=== PATIENT | female | born 1970 | race Asian ===

== ENCOUNTER 2017-03-15 11:25 | Emergency (ER) | payer MEDICAID ==
[~2017-03-15] VITALS: Ht 160 cm; Wt 99.1 kg
[~2017-03-15 11:25] MED LIST: AMLO5TAB2 PO; ATOR10TA9 PO; B12/1TAB PO; CHOL10003 PO; CHOL200040 PO; FERR15DR18 PO; FERR325T20 PO; FOLI-17 PO; FURO20TA3 PO; FURO80TA3 PO; GLYB5TAB3 PO; INSU100I28 SQ-INSULIN; INSU100V8 SQ; LOSA25TA5 PO; NAPR500T PO; ONDA-39 PO; SEVE800T PO; TRAM100T2 PO; TRAN650T3 PO
[2017-03-15] MEDS ORDERED: MECLIZINE CHEWABLE 25 MG TAB PO ONE (13:00)
[2017-03-15] MEDS ORDERED: ONDANSETRON 2MG/ML, 2ML IVPush ONE (13:00)
[2017-03-15] MEDS ORDERED: SODIUM CHLORIDE FLUSH 10ML SYR IVF ONE (13:00)
[2017-03-15] MEDS ORDERED: INSU100I34 SQ (13:06)
[2017-03-15 13:26] LABS: HEMOGLOBIN 8.3 g/dL (11.7-16.4)
[2017-03-15] MEDS ORDERED: MECLIZINE CHEWABLE 25 MG TAB ONE (13:27)
[2017-03-15] MEDS ORDERED: ONDANSETRON 2MG/ML, 2ML ONE (13:27)
[2017-03-15 13:35] LABS: ASPARTATE AMINO TRANSFERASE 9 U/L (15-37); BLOOD UREA NITROGEN 16 mg/dL (7-18)
[2017-03-15] MEDS ORDERED: DIAZEPAM 5 MG/ML, 2ML ONE (14:42)
[2017-03-15] MEDS ORDERED: DIAZEPAM 5 MG/ML, 2ML IV ONE (15:00)
[2017-03-15 15:40] VITALS: BP 150/91
== END 2017-03-15 15:41 | disposition home or self-care (01) ==
LOC: ED 15:03
DX: H81.13 Benign paroxysmal vertigo, bilateral (principal); H81.393 Other peripheral vertigo, bilateral; I12.0 Hypertensive chronic kidney disease with stage 5 chronic kidney disease or end stage renal disease; N18.6 End stage renal disease; E11.9 Type 2 diabetes mellitus without complications; Z88.8 Allergy status to other drugs, medicaments and biological substances
CPT/HCPCS: 36415; 70450; 80053; 83735; 84100; 84703; 85025; 93005; 96374; 96375; 99285; J2405; J3360

== ENCOUNTER 2017-03-25 18:14 | Inpatient (IN) | payer MEDICAID ==
[~2017-03-25] VITALS: Ht 160 cm; Wt 96.2 kg
[~2017-03-25 18:14] MED LIST changes: +INSU100I34 SQ
[2017-03-25] MEDS ORDERED: SODIUM CHLORIDE FLUSH 10ML SYR IVF ONE ×2 (19:00→19:30)
[2017-03-25] MEDS ORDERED: SODIUM CHLORIDE 0.9% 1,000ML IVBOLUS ONE (19:00)
[2017-03-25 19:26] LABS: ASPARTATE AMINO TRANSFERASE 17 U/L (15-37); BLOOD UREA NITROGEN 29 mg/dL (7-18)
[2017-03-25] MEDS ORDERED: SODIUM CHLORIDE FLUSH 10ML SYR IVF PRN (20:30)
[2017-03-25 20:41] VITALS: BP 191/92
[2017-03-25 20:56] VITALS: BP 191/91
[2017-03-25] MEDS ORDERED: INSU100I34 SQ (20:59)
[2017-03-25 21:13] VITALS: BP 198/93
[2017-03-25] MEDS ORDERED: ACETAMINOPHEN 325 MG TABLET PO PRN (22:00)
[2017-03-25] MEDS: [UNRECOGNIZED DRUG - REMARK] MC SCH ×2 (22:00→23:00)
[2017-03-25] MEDS ORDERED: BISACODYL 10 MG SUPP PR PRN (22:00)
[2017-03-25] MEDS ORDERED: ONDANSETRON 4 MG TABLET PO PRN (22:00)
[2017-03-25] MEDS ORDERED: POLYETHYLENE GLYCOL 17 GM PACKET PO PRN (22:00)
[2017-03-25] MEDS ORDERED: hydrALAzine 20 MG/ML, 1ML IV PRN (22:00)
[2017-03-25] MEDS: LISINOPRIL 10 MG TABLET PO SCH ×2 (22:30→22:41)
[2017-03-25] MEDS ORDERED: DIPHENHYDRAMINE 50 MG/ML, 1ML IVPush ONE (22:30)
[2017-03-25] MEDS: TRAZODONE 50MG TABLET PO SCH (22:30)
[2017-03-25 22:31] VITALS: BP 136/79
[2017-03-25] MEDS ORDERED: LORazepam 1MG TABLET ONE (22:36)
[2017-03-25] MEDS: LORazepam 0.5MG TABLET PO PRN (22:38)
[2017-03-25] MEDS: FERROUS SULFATE 325 MG TABLET PO SCH (22:40)
[2017-03-25] MEDS: SODIUM CHLORIDE FLUSH 10ML SYR IVF SCH (22:40)
[2017-03-25] MEDS: ATORVASTATIN 10 MG TABLET PO SCH (22:41)
[2017-03-25] MEDS: SEVELAMER 800MG TABLET PO SCH (22:41)
[2017-03-25 23:17] VITALS: BP 174/83
[2017-03-26] VITALS (10 sets, daily range): BP systolic 106–172; BP diastolic 66–95
[2017-03-26] MEDS: SEVELAMER 800MG TABLET PO SCH ×5 (03:53→15:51)
[2017-03-26] MEDS: CARVEDILOL 12.5 MG TABLET PO SCH ×2 (05:41→18:20)
[2017-03-26 06:07] LABS: ASPARTATE AMINO TRANSFERASE 15 U/L (15-37); BLOOD UREA NITROGEN 30 mg/dL (7-18)
[2017-03-26] MEDS: SENNA/DOCUSATE TABLET PO SCH (09:00)
[2017-03-26] MEDS ORDERED: INSULIN DETEMIR 100 UNITS/ML, PEN SQ-INSULIN SCH (09:00)
[2017-03-26] MEDS: CHOLECALCIFEROL 1,000 UNIT TABLET PO SCH (09:26)
[2017-03-26] MEDS: FERROUS SULFATE 325 MG TABLET PO SCH ×3 (09:27→22:35)
[2017-03-26] MEDS: MULTIVITAMIN 1 TABLET PO SCH (09:27)
[2017-03-26] MEDS: SODIUM CHLORIDE FLUSH 10ML SYR IVF SCH ×2 (09:28→22:35)
[2017-03-26] MEDS: TRAZODONE 50MG TABLET PO SCH (21:00)
[2017-03-26] MEDS: ATORVASTATIN 10 MG TABLET PO SCH (22:35)
[2017-03-27 02:00] VITALS: BP 101/67
[2017-03-27 05:59] VITALS: BP 129/81
[2017-03-27] MEDS: CARVEDILOL 12.5 MG TABLET PO SCH ×2 (06:01→17:25)
[2017-03-27] MEDS: INSULIN DETEMIR 100 UNITS/ML, PEN SQ-INSULIN SCH (06:01)
[2017-03-27 06:15] LABS: BLOOD UREA NITROGEN 23 mg/dL (7-18)
[2017-03-27 06:42] VITALS: BP 113/70
[2017-03-27] MEDS ORDERED: ONDANSETRON 2MG/ML, 2ML ONE (08:39)
[2017-03-27] MEDS: ONDANSETRON 2MG/ML, 2ML IVPush PRN ×2 (08:44→14:04)
[2017-03-27 08:54] VITALS: BP_SYST 111; BP_SYST 114; BP_SYST 134; BP_DIAS 74; BP_DIAS 75; BP_DIAS 83
[2017-03-27] MEDS: SENNA/DOCUSATE TABLET PO SCH ×2 (09:00→17:26)
[2017-03-27] MEDS: MECLIZINE 12.5 MG TABLET PO PRN (10:42)
[2017-03-27] MEDS: PROGESTERONE 100 MG CAPSULE PO SCH (10:43)
[2017-03-27] MEDS: FERROUS SULFATE 325 MG TABLET PO SCH ×3 (10:44→22:24)
[2017-03-27] MEDS: CHOLECALCIFEROL 1,000 UNIT TABLET PO SCH (10:44)
[2017-03-27] MEDS: SEVELAMER 800MG TABLET PO SCH ×3 (10:44→17:25)
[2017-03-27] MEDS: SODIUM CHLORIDE FLUSH 10ML SYR IVF SCH ×2 (10:45→22:24)
[2017-03-27] MEDS: MULTIVITAMIN 1 TABLET PO SCH (10:45)
[2017-03-27 12:42] VITALS: BP 120/70
[2017-03-27] MEDS ORDERED: DARBEPOETIN 100 MCG/ML SQ SCH (13:30)
[2017-03-27 19:45] VITALS: BP 127/78
[2017-03-27] MEDS: TRAZODONE 50MG TABLET PO SCH (22:24)
[2017-03-27] MEDS: ATORVASTATIN 10 MG TABLET PO SCH (22:24)
[2017-03-28] MEDS: MECLIZINE 12.5 MG TABLET PO PRN ×2 (01:18→11:46)
[2017-03-28 02:22] VITALS: BP 106/66
[2017-03-28 06:15] LABS: ASPARTATE AMINO TRANSFERASE 9 U/L (15-37); BLOOD UREA NITROGEN 39 mg/dL (7-18)
[2017-03-28] MEDS: INSULIN DETEMIR 100 UNITS/ML, PEN SQ-INSULIN SCH (06:19)
[2017-03-28] MEDS: CARVEDILOL 12.5 MG TABLET PO SCH ×2 (06:19→17:47)
[2017-03-28 07:10] VITALS: BP 101/64
[2017-03-28 07:42] VITALS: BP_SYST 104; BP_SYST 109; BP_DIAS 67; BP_DIAS 71
[2017-03-28] MEDS: SEVELAMER 800MG TABLET PO SCH ×3 (09:29→17:46)
[2017-03-28] MEDS: MULTIVITAMIN 1 TABLET PO SCH (09:29)
[2017-03-28] MEDS: FERROUS SULFATE 325 MG TABLET PO SCH ×3 (09:29→20:56)
[2017-03-28] MEDS: SODIUM CHLORIDE FLUSH 10ML SYR IVF SCH ×2 (09:29→20:56)
[2017-03-28] MEDS: PROGESTERONE 100 MG CAPSULE PO SCH (09:30)
[2017-03-28] MEDS: SENNA/DOCUSATE TABLET PO SCH (09:30)
[2017-03-28] MEDS: CHOLECALCIFEROL 1,000 UNIT TABLET PO SCH (09:30)
[2017-03-28 12:34] VITALS: BP_SYST 127; BP_SYST 131; BP_SYST 152; BP_DIAS 82; BP_DIAS 86; BP_DIAS 87
[2017-03-28 16:36] LABS: ASPARTATE AMINO TRANSFERASE 13 U/L (15-37); BLOOD UREA NITROGEN 44 mg/dL (7-18)
[2017-03-28 20:29] VITALS: BP_SYST 135; BP_SYST 149; BP_SYST 162; BP_DIAS 79; BP_DIAS 81; BP_DIAS 84
[2017-03-28] MEDS: TRAZODONE 50MG TABLET PO SCH (20:56)
[2017-03-28] MEDS: ATORVASTATIN 10 MG TABLET PO SCH (20:56)
[2017-03-29 00:55] VITALS: BP 105/68
[2017-03-29 05:29] LABS: ASPARTATE AMINO TRANSFERASE 7 U/L (15-37); BLOOD UREA NITROGEN 53 mg/dL (7-18)
[2017-03-29] MEDS: INSULIN DETEMIR 100 UNITS/ML, PEN SQ-INSULIN SCH (05:59)
[2017-03-29] MEDS: CARVEDILOL 12.5 MG TABLET PO SCH ×2 (06:00→17:13)
[2017-03-29] MEDS: SEVELAMER 800MG TABLET PO SCH ×3 (07:00→17:14)
[2017-03-29 07:12] VITALS: BP_SYST 124; BP_SYST 130; BP_DIAS 69; BP_DIAS 76; BP_DIAS 77
[2017-03-29] MEDS: SODIUM CHLORIDE FLUSH 10ML SYR IVF SCH ×2 (08:37→20:12)
[2017-03-29 13:15] VITALS: BP 110/70
[2017-03-29] MEDS: FERROUS SULFATE 325 MG TABLET PO SCH ×3 (13:23→20:12)
[2017-03-29] MEDS: PROGESTERONE 100 MG CAPSULE PO SCH (13:24)
[2017-03-29] MEDS: SENNA/DOCUSATE TABLET PO SCH (13:24)
[2017-03-29] MEDS: CHOLECALCIFEROL 1,000 UNIT TABLET PO SCH (13:24)
[2017-03-29] MEDS: MULTIVITAMIN 1 TABLET PO SCH (13:24)
[2017-03-29 19:30] VITALS: BP_SYST 107; BP_SYST 116; BP_SYST 121; BP_DIAS 67; BP_DIAS 72; BP_DIAS 75
[2017-03-29] MEDS: TRAZODONE 50MG TABLET PO SCH (20:12)
[2017-03-29] MEDS: ATORVASTATIN 10 MG TABLET PO SCH (20:12)
[2017-03-29] MEDS: MECLIZINE 12.5 MG TABLET PO PRN (20:20)
[2017-03-30 01:42] VITALS: BP 116/70
[2017-03-30] MEDS: LORazepam 0.5MG TABLET PO PRN (02:53)
[2017-03-30 05:40] LABS: BLOOD UREA NITROGEN 31 mg/dL (7-18)
[2017-03-30 05:44] LABS: ASPARTATE AMINO TRANSFERASE 13 U/L (15-37)
[2017-03-30] MEDS: CARVEDILOL 12.5 MG TABLET PO SCH (06:32)
[2017-03-30] MEDS: INSULIN DETEMIR 100 UNITS/ML, PEN SQ-INSULIN SCH (06:33)
[2017-03-30 07:00] VITALS: BP 115/74
[2017-03-30] MEDS: SEVELAMER 800MG TABLET PO SCH (08:00)
[2017-03-30] MEDS: PROGESTERONE 100 MG CAPSULE PO SCH (08:00)
[2017-03-30] MEDS: FERROUS SULFATE 325 MG TABLET PO SCH (08:00)
[2017-03-30] MEDS: MULTIVITAMIN 1 TABLET PO SCH (08:00)
[2017-03-30] MEDS: SODIUM CHLORIDE FLUSH 10ML SYR IVF SCH (08:01)
[2017-03-30] MEDS: CHOLECALCIFEROL 1,000 UNIT TABLET PO SCH (08:01)
[2017-03-30] MEDS: MECLIZINE 12.5 MG TABLET PO PRN (08:01)
[2017-03-30] MEDS: SENNA/DOCUSATE TABLET PO SCH (08:02)
[2017-03-30] MEDS ORDERED: MECL12.52 PO (08:16)
[2017-03-30] MEDS ORDERED: PROG100C2 PO (08:16)
[2017-03-30] MEDS ORDERED: ERGO500017 PO (08:23)
== END 2017-03-30 12:06 | disposition home or self-care (01) | DRG 760 ==
LOC: ED 20:22 → EDIP 21:05 → 4EST 21:47 → DCLOUNGE 03-30 11:32
PROVIDERS: ADMIT Internal Medicine; ATTEND Internal Medicine
PROC: 30233N1 Transfusion of Nonautologous Red Blood Cells into Peripheral Vein, Percutaneous Approach (ICD-10-PCS; principal; 2017-03-25)
PROC: 5A1D60Z (ICD-10-PCS; 2017-03-26)
DX: N93.8 Other specified abnormal uterine and vaginal bleeding (principal); N18.6 End stage renal disease; I13.2 Hypertensive heart and chronic kidney disease with heart failure and with stage 5 chronic kidney disease, or end stage renal disease; E87.1 Hypo-osmolality and hyponatremia; D62 Acute posthemorrhagic anemia; I50.32 Chronic diastolic (congestive) heart failure; E46 Unspecified protein-calorie malnutrition; E11.22 Type 2 diabetes mellitus with diabetic chronic kidney disease; G43.909 Migraine, unspecified, not intractable, without status migrainosus; E11.65 Type 2 diabetes mellitus with hyperglycemia; E78.5 Hyperlipidemia, unspecified; G47.33 Obstructive sleep apnea (adult) (pediatric); N83.209 Unspecified ovarian cyst, unspecified side; D63.8 Anemia in other chronic diseases classified elsewhere; H81.10 Benign paroxysmal vertigo, unspecified ear; H81.09 Meniere's disease, unspecified ear; N92.0 Excessive and frequent menstruation with regular cycle; E55.9 Vitamin D deficiency, unspecified; Z79.4 Long term (current) use of insulin; Z99.2 Dependence on renal dialysis; Z72.0 Tobacco use; Z88.8 Allergy status to other drugs, medicaments and biological substances
CPT/HCPCS: 36415; 70551; 71010; 74020; 76700; 76830; 80048; 80053; 82040; 82306; 82728; 82962; 83036; 83540; 83550; 83970; 84100; 84703; 85025; 85610; 85730; 86850; 86900; 86923; 93005; 96360; 96361; J0881; J2405; Q0162; J0360; J1200; J1815; J7030; P9016

== ENCOUNTER 2017-04-05 11:23 | Inpatient (IN) | payer MEDICAID ==
[2017-04-05] VITALS (8 sets, daily range): BP systolic 120–146; BP diastolic 61–82
[~2017-04-05] VITALS: Ht 160 cm; Wt 104.4 kg
[~2017-04-05 11:23] MED LIST changes: +ERGO500017 PO; +MECL12.52 PO; +PROG100C2 PO
[2017-04-05] MEDS ORDERED: SODIUM CHLORIDE 0.9% 1,000 ML IV ONE (12:11)
[2017-04-05 12:45] LABS: BLOOD UREA NITROGEN 17 mg/dL (7-18)
[2017-04-05 13:13] LABS: DIFF TOTAL CELLS COUNTED 100 CELL DIFF
[2017-04-05 13:14] LABS: VERIFY COUNTS? YES
[2017-04-05 13:15] LABS: ANISOCYTOSIS 2+; MICROCYTOSIS 1+
[2017-04-05 13:16] LABS: POLYCHROMASIA 1+
[2017-04-05] MEDS ORDERED: MORPHINE SULFATE 4 MG/ML, 1ML IVPush PRN (15:30)
[2017-04-05] MEDS: MEDROXYPROGESTERONE ACETATE 5 MG TABLET PO SCH ×2 (16:00→21:29)
[2017-04-05] MEDS ORDERED: MECLIZINE 12.5 MG TABLET PO PRN (17:30)
[2017-04-05] MEDS ORDERED: morphine SULFATE 10 MG/ML, 1ML IVPush PRN (17:30)
[2017-04-05] MEDS ORDERED: LABETALOL 5MG/ML 40ML VIAL IVPush PRN (17:30)
[2017-04-05] MEDS ORDERED: ONDANSETRON 2MG/ML, 2ML IVPush PRN (17:30)
[2017-04-05] MEDS ORDERED: DOCUSATE 100 MG CAPSULE PO PRN (17:30)
[2017-04-05] MEDS ORDERED: ACETAMINOPHEN 325 MG TABLET PO PRN (17:30)
[2017-04-05] MEDS ORDERED: ONDANSETRON ODT 4 MG PO PRN (17:30)
[2017-04-05] MEDS ORDERED: BISACODYL 10 MG SUPP PR PRN (17:30)
[2017-04-05] MEDS ORDERED: POTASSIUM CHLORIDE 20 MEQ TAB.ER.PRT PO ONE (18:00)
[2017-04-05] MEDS ORDERED: DEXTROSE 4 GM TAB.CHEW PO PRN (18:00)
[2017-04-05] MEDS ORDERED: GLUCAGON 1 MG IM PRN (18:00)
[2017-04-05] MEDS ORDERED: DEXTROSE 50%, 50ML SYRINGE IVPush PRN (18:00)
[2017-04-05] MEDS: FERROUS SULFATE 325 MG TABLET PO SCH (21:28)
[2017-04-05] MEDS: ATORVASTATIN 10 MG TABLET PO SCH (21:28)
[2017-04-05] MEDS: INSULIN REGULAR 100 UNITS/ML, 3ML VIAL SQ-INSULIN SCH (21:28)
[2017-04-05] MEDS: SODIUM CHLORIDE FLUSH 10ML SYR IVF SCH (21:29)
[2017-04-06] VITALS (13 sets, daily range): BP systolic 129–165; BP diastolic 69–85
[2017-04-06 04:58] LABS: BLOOD UREA NITROGEN 27 mg/dL (7-18)
[2017-04-06 05:02] LABS: ASPARTATE AMINO TRANSFERASE 8 U/L (15-37)
[2017-04-06] MEDS: INSULIN REGULAR 100 UNITS/ML, 3ML VIAL SQ-INSULIN SCH ×4 (07:00→20:32)
[2017-04-06] MEDS: SEVELAMER 800MG TABLET PO SCH ×3 (08:04→17:08)
[2017-04-06] MEDS: FERROUS SULFATE 325 MG TABLET PO SCH ×3 (08:04→20:33)
[2017-04-06] MEDS: CHOLECALCIFEROL 1,000 UNIT TABLET PO SCH (08:04)
[2017-04-06] MEDS: MEDROXYPROGESTERONE ACETATE 5 MG TABLET PO SCH ×3 (08:04→20:32)
[2017-04-06] MEDS: SODIUM CHLORIDE FLUSH 10ML SYR IVF SCH ×2 (08:05→20:33)
[2017-04-06] MEDS ORDERED: PHARMACY MAY ADJ FOR RENAL FX MC PRN (12:30)
[2017-04-06] MEDS: CEFTRIAXONE PMX 1GM/50ML 50 ML IV SCH (12:58)
[2017-04-06] MEDS: ATORVASTATIN 10 MG TABLET PO SCH (20:33)
[2017-04-07 04:54] VITALS: BP 170/77
[2017-04-07 06:24] LABS: BLOOD UREA NITROGEN 40 mg/dL (7-18)
[2017-04-07] MEDS: INSULIN REGULAR 100 UNITS/ML, 3ML VIAL SQ-INSULIN SCH ×4 (07:00→20:51)
[2017-04-07 07:21] VITALS: BP 155/88
[2017-04-07] MEDS: FERROUS SULFATE 325 MG TABLET PO SCH ×3 (07:58→20:50)
[2017-04-07] MEDS: MEDROXYPROGESTERONE ACETATE 5 MG TABLET PO SCH ×3 (07:58→20:50)
[2017-04-07] MEDS: SEVELAMER 800MG TABLET PO SCH ×3 (07:59→16:37)
[2017-04-07] MEDS: CHOLECALCIFEROL 1,000 UNIT TABLET PO SCH (07:59)
[2017-04-07] MEDS: SODIUM CHLORIDE FLUSH 10ML SYR IVF SCH ×2 (08:03→20:50)
[2017-04-07] MEDS ORDERED: ARANESP 100 MCG/ML **ESRD SQ SCH (12:00)
[2017-04-07 14:29] VITALS: BP 133/81
[2017-04-07] MEDS: CEFTRIAXONE PMX 1GM/50ML 50 ML IV SCH (14:40)
[2017-04-07 20:00] VITALS: BP 165/75
[2017-04-07] MEDS: ATORVASTATIN 10 MG TABLET PO SCH (20:50)
[2017-04-08 02:00] VITALS: BP 135/75
[2017-04-08 05:47] LABS: BLOOD UREA NITROGEN 31 mg/dL (7-18)
[2017-04-08] MEDS: INSULIN REGULAR 100 UNITS/ML, 3ML VIAL SQ-INSULIN SCH (07:00)
[2017-04-08] MEDS: CHOLECALCIFEROL 1,000 UNIT TABLET PO SCH (07:37)
[2017-04-08] MEDS: FERROUS SULFATE 325 MG TABLET PO SCH (07:37)
[2017-04-08] MEDS: MEDROXYPROGESTERONE ACETATE 5 MG TABLET PO SCH (07:37)
[2017-04-08] MEDS: SEVELAMER 800MG TABLET PO SCH (07:38)
[2017-04-08] MEDS: SODIUM CHLORIDE FLUSH 10ML SYR IVF SCH (07:41)
[2017-04-08 07:59] VITALS: BP 153/87
[2017-04-08] MEDS ORDERED: MEDR5TAB2 PO (08:48)
[2017-04-08] MEDS ORDERED: CEFU250T66 PO (08:48)
== END 2017-04-08 11:45 | disposition home or self-care (01) | DRG 760 ==
LOC: ED 13:54 → EDIP 14:37 → 4EST 15:47 → DCLOUNGE 04-08 11:25
PROVIDERS: ADMIT Hospitalist; ATTEND Hospitalist
PROC: 30233N1 Transfusion of Nonautologous Red Blood Cells into Peripheral Vein, Percutaneous Approach (ICD-10-PCS; principal; 2017-04-05)
PROC: 0T9B70Z Drainage of Bladder with Drainage Device, Via Natural or Artificial Opening (ICD-10-PCS; 2017-04-06)
PROC: 5A1D60Z (ICD-10-PCS; 2017-04-07)
DX: N92.1 Excessive and frequent menstruation with irregular cycle (principal); N18.6 End stage renal disease; I13.2 Hypertensive heart and chronic kidney disease with heart failure and with stage 5 chronic kidney disease, or end stage renal disease; I50.32 Chronic diastolic (congestive) heart failure; D62 Acute posthemorrhagic anemia; N39.0 Urinary tract infection, site not specified; E44.0 Moderate protein-calorie malnutrition; Z68.41 Body mass index [BMI] 40.0-44.9, adult; G43.909 Migraine, unspecified, not intractable, without status migrainosus; E11.22 Type 2 diabetes mellitus with diabetic chronic kidney disease; E11.649 Type 2 diabetes mellitus with hypoglycemia without coma; G47.33 Obstructive sleep apnea (adult) (pediatric); E66.9 Obesity, unspecified; M06.9 Rheumatoid arthritis, unspecified; F17.210 Nicotine dependence, cigarettes, uncomplicated; D63.1 Anemia in chronic kidney disease; N83.201 Unspecified ovarian cyst, right side; H81.10 Benign paroxysmal vertigo, unspecified ear; G89.29 Other chronic pain; N25.0 Renal osteodystrophy; N93.8 Other specified abnormal uterine and vaginal bleeding; Z99.2 Dependence on renal dialysis; Z88.8 Allergy status to other drugs, medicaments and biological substances; Z79.4 Long term (current) use of insulin; Z79.899 Other long term (current) drug therapy; Z83.3 Family history of diabetes mellitus
CPT/HCPCS: 36415; 76830; 80048; 80053; 81001; 82040; 82962; 84703; 85014; 85018; 85025; 85610; 86850; 86900; 86923; 87040; 87086; 93005; 99285; J0696; J0882; J1815; J7030; P9016

== ENCOUNTER 2017-05-03 11:06 | Emergency (ER) | payer MEDICAID ==
[~2017-05-03 11:06] MED LIST changes: +CEFU250T66 PO; +MEDR5TAB2 PO
[2017-05-03] MEDS ORDERED: HYDROmorphone 1 MG/ML, 1ML ONE ×2 (12:42→13:02)
[2017-05-03] MEDS ORDERED: DIAZEPAM 5 MG/ML, 2ML ONE (13:02)
[2017-05-04 20:14] LABS: BLOOD UREA NITROGEN 11 mg/dL (7-18)
== END 2017-05-03 12:30 ==
LOC: ED 11:06
DX: D25.9 Leiomyoma of uterus, unspecified (principal); E10.22 Type 1 diabetes mellitus with diabetic chronic kidney disease; I12.0 Hypertensive chronic kidney disease with stage 5 chronic kidney disease or end stage renal disease; N18.6 End stage renal disease; Z99.2 Dependence on renal dialysis
CPT/HCPCS: 36415; 80048; 85025; 86850; 86900; 99284

== ENCOUNTER 2017-05-05 22:24 | Inpatient (IN) | payer MEDICAID ==
[~2017-05-05] VITALS: Ht 157.5 cm; Wt 97.1 kg
[2017-05-06] VITALS (12 sets, daily range): BP systolic 123–157; BP diastolic 70–90
[2017-05-06] MEDS ORDERED: NORG1TAB30 PO (00:16)
[2017-05-06] MEDS ORDERED: HYDR-882 PO (00:16)
[2017-05-06] MEDS ORDERED: ACETAMINOPHEN 325 MG TABLET PO SCH (00:30)
[2017-05-06] MEDS ORDERED: DIPHENHYDRAMINE 25 MG CAPSULE PO SCH (00:30)
[2017-05-06] MEDS ORDERED: DEXTROSE 4 GM TAB.CHEW PO PRN (01:00)
[2017-05-06] MEDS ORDERED: DEXTROSE 50%, 50ML SYRINGE IVPush PRN (01:00)
[2017-05-06] MEDS ORDERED: GLUCAGON 1 MG IM PRN (01:00)
[2017-05-06] MEDS ORDERED: ONDANSETRON 4 MG TABLET PO PRN (02:00)
[2017-05-06] MEDS ORDERED: MORPHINE SULFATE 4 MG/ML, 1ML IVPush PRN (02:00)
[2017-05-06] MEDS ORDERED: MECLIZINE 12.5 MG TABLET PO PRN (02:00)
[2017-05-06] MEDS: INSULIN ASPART 100 UNITS/ML, PEN SQ-INSULIN SCH ×4 (07:30→21:00)
[2017-05-06] MEDS: SEVELAMER 800MG TABLET PO SCH ×3 (07:30→16:00)
[2017-05-06 07:47] LABS: BLOOD UREA NITROGEN 13 mg/dL (7-18)
[2017-05-06 07:52] LABS: IS PT STATUS REG ER OR PRE ER? NO
[2017-05-06] MEDS: B6 HOMEMEDPO SCH (09:00)
[2017-05-06] MEDS: LEVOMEFOLATE CALCIUM HOMEMEDPO SCH (09:00)
[2017-05-06] MEDS: B12 HOMEMEDPO SCH (09:00)
[2017-05-06] MEDS: SODIUM CHLORIDE FLUSH 10ML SYR IVF SCH ×2 (09:00→21:55)
[2017-05-06] MEDS: CHOLECALCIFEROL 1,000 UNIT TABLET PO SCH (09:18)
[2017-05-06] MEDS: INSULIN DETEMIR 100 UNITS/ML, PEN SQ-INSULIN SCH ×2 (09:18→21:56)
[2017-05-06] MEDS ORDERED: D5%-LACTATED RINGERS 1,000 ML IV SCH (14:00)
[2017-05-06] MEDS: ACETAMINOPHEN 325 MG TABLET PO PRN ×2 (14:23→19:25)
[2017-05-06 16:19] LABS: IS PT STATUS REG ER OR PRE ER? NO
[2017-05-06] MEDS ORDERED: SILVER NITRATE STICK TP ONE (16:48)
[2017-05-06] MEDS ORDERED: SUCCINYLCHOLINE 20 MG/ML, 10ML ONE (17:17)
[2017-05-06] MEDS ORDERED: CEFAZOLIN 1,000 MG ONE (17:17)
[2017-05-06] MEDS ORDERED: PROPOFOL 10 MG/ML, 20ML ONE (17:17)
[2017-05-06] MEDS ORDERED: FENTANYL PF 100 MCG/2ML ONE ×3 (17:50→19:16)
[2017-05-06] MEDS ORDERED: HYDROmorphone 1 MG/ML, 1ML IV PRN (18:30)
[2017-05-06] MEDS ORDERED: ONDANSETRON 2MG/ML, 2ML IVPush PRN (18:30)
[2017-05-06] MEDS ORDERED: LABETALOL 5MG/ML, 20ML IV PRN (18:30)
[2017-05-06] MEDS ORDERED: OXYcodone 5 MG/5 ML ORAL.SOL UDC PO PRN (18:30)
[2017-05-06] MEDS ORDERED: hydrALAzine 20 MG/ML, 1ML IV PRN (18:30)
[2017-05-06] MEDS ORDERED: FENTANYL PF 100 MCG/2ML IV PRN (18:30)
[2017-05-06] MEDS ORDERED: HYDROcodone/APAP 5/325 TABLET PO PRN (19:00)
[2017-05-06] MEDS ORDERED: OXYcodone 5 MG/5 ML ORAL.SOL UDC ONE (19:16)
[2017-05-06] MEDS ORDERED: ACETAMINOPHEN 650 MG/20.3 ML UDC ONE (19:16)
[2017-05-06] MEDS ORDERED: ATORVASTATIN 10 MG TABLET PO SCH (21:00)
[2017-05-06 21:24] LABS: IS PT STATUS REG ER OR PRE ER? NO
[2017-05-06] MEDS: LACTATED RINGERS 1,000 ML IV SCH (21:54)
[2017-05-07] VITALS: BP 106/59
[2017-05-07 04:02] VITALS: BP 133/74
[2017-05-07] MEDS: LACTATED RINGERS 1,000 ML IV SCH (05:22)
[2017-05-07 05:52] LABS: BLOOD UREA NITROGEN 18 mg/dL (7-18); TOTAL IRON BINDING CAPACITY 201 mcg/dL (250-450)
[2017-05-07 06:58] VITALS: BP 134/80
[2017-05-07] MEDS: INSULIN ASPART 100 UNITS/ML, PEN SQ-INSULIN SCH ×2 (07:00→11:00)
[2017-05-07] MEDS: SEVELAMER 800MG TABLET PO SCH ×2 (07:00→14:13)
[2017-05-07] MEDS: B6 HOMEMEDPO SCH (09:00)
[2017-05-07] MEDS: B12 HOMEMEDPO SCH (09:00)
[2017-05-07] MEDS: LEVOMEFOLATE CALCIUM HOMEMEDPO SCH (09:00)
[2017-05-07] MEDS: SODIUM CHLORIDE FLUSH 10ML SYR IVF SCH (09:00)
[2017-05-07] MEDS: CHOLECALCIFEROL 1,000 UNIT TABLET PO SCH (09:16)
[2017-05-07] MEDS: ACETAMINOPHEN 325 MG TABLET PO PRN ×2 (09:17→14:13)
[2017-05-07] MEDS: INSULIN DETEMIR 100 UNITS/ML, PEN SQ-INSULIN SCH (09:19)
[2017-05-07] MEDS ORDERED: ARANESP 60 MCG/ML **ESRD SQ SCH (11:00)
[2017-05-07 13:42] VITALS: BP 149/77
[2017-05-07] MEDS ORDERED: FERROUS SULFATE 325 MG TABLET PO SCH (17:00)
== END 2017-05-07 16:28 | disposition home or self-care (01) | DRG 744 ==
LOC: 4WST 23:25
PROVIDERS: ADMIT Student in an Organized Health Care Education/Training Program; ATTEND Student in an Organized Health Care Education/Training Program
PROC: 30233N1 Transfusion of Nonautologous Red Blood Cells into Peripheral Vein, Percutaneous Approach (ICD-10-PCS; 2017-05-06)
PROC: 5A1D00Z (ICD-10-PCS; 2017-05-06)
PROC: 0UDB8ZZ Extraction of Endometrium, Via Natural or Artificial Opening Endoscopic (ICD-10-PCS; principal; 2017-05-06 18:00)
DX: N97.0 Female infertility associated with anovulation (principal); N18.6 End stage renal disease; I13.2 Hypertensive heart and chronic kidney disease with heart failure and with stage 5 chronic kidney disease, or end stage renal disease; D62 Acute posthemorrhagic anemia; I50.32 Chronic diastolic (congestive) heart failure; Z99.2 Dependence on renal dialysis; M19.90 Unspecified osteoarthritis, unspecified site; G47.33 Obstructive sleep apnea (adult) (pediatric); Z88.9 Allergy status to unspecified drugs, medicaments and biological substances; E11.22 Type 2 diabetes mellitus with diabetic chronic kidney disease; G43.909 Migraine, unspecified, not intractable, without status migrainosus; E78.5 Hyperlipidemia, unspecified; N84.0 Polyp of corpus uteri; N92.1 Excessive and frequent menstruation with irregular cycle; Z79.4 Long term (current) use of insulin; M06.9 Rheumatoid arthritis, unspecified; E66.9 Obesity, unspecified; Z68.39 Body mass index [BMI] 39.0-39.9, adult; D63.1 Anemia in chronic kidney disease; Z87.891 Personal history of nicotine dependence; I95.9 Hypotension, unspecified
CPT/HCPCS: 36415; 74000; 76830; 80048; 80069; 81001; 82306; 82728; 82962; 83540; 83550; 83735; 83970; 84484; 85014; 85018; 85025; 86850; 86900; 86923; 88305; J0690; J0882; J1815; J2704; J3010; J0330; J7120; J7121; P9016; Q0163

== ENCOUNTER 2017-06-09 18:43 | Emergency (ER) | payer MEDICAID ==
[~2017-06-09] VITALS: Ht 157.5 cm; Wt 98.6 kg
[~2017-06-09 18:43] MED LIST changes: +HYDR-882 PO; +NORG1TAB30 PO
[2017-06-09] MEDS ORDERED: FLUORESCEIN OPHTHALMIC 1 MG STRIP LEFTEYE ONE (19:00)
[2017-06-09] MEDS ORDERED: PROPARACAINE OPHTH 0.5%, 15ML LEFTEYE ONE (19:00)
[2017-06-09] MEDS ORDERED: PLEASE ENTER HEIGHT AND WEIGHT MC SCH (19:00)
[2017-06-09] MEDS ORDERED: PROPARACAINE OPHTH 0.5%, 15ML ONE (19:12)
[2017-06-09] MEDS ORDERED: FLUORESCEIN OPHTHALMIC 1 MG STRIP ONE (19:12)
[2017-06-09] MEDS ORDERED: HYDR-3241 PO (20:01)
[2017-06-09] MEDS ORDERED: [UNRECOGNIZED DRUG - CODE] INJ (20:08)
[2017-06-09 21:04] VITALS: BP 160/73
== END 2017-06-09 21:05 | disposition home or self-care (01) ==
LOC: ED 20:18
DX: H53.132 Sudden visual loss, left eye (principal); E11.22 Type 2 diabetes mellitus with diabetic chronic kidney disease; F17.200 Nicotine dependence, unspecified, uncomplicated; N18.6 End stage renal disease; I12.0 Hypertensive chronic kidney disease with stage 5 chronic kidney disease or end stage renal disease; Z99.2 Dependence on renal dialysis
CPT/HCPCS: 99283

== ENCOUNTER 2017-06-16 05:19 | Observation (INO) | payer MEDICAID ==
[~2017-06-16] VITALS: Ht 157.5 cm; Wt 99.6 kg
[~2017-06-16 05:19] MED LIST changes: +HYDR-3241 PO; +[UNRECOGNIZED DRUG - CODE] INJ
[2017-06-16] MEDS ORDERED: SODIUM CHLORIDE 0.9% 1,000 ML IV SCH (06:21)
[2017-06-16 06:51] VITALS: BP 158/85
[2017-06-16] MEDS ORDERED: MIDAZOLAM 1 MG/ML, 2ML ONE (07:11)
[2017-06-16] MEDS ORDERED: FENTANYL PF 250 MCG/5ML ONE (07:11)
[2017-06-16] MEDS ORDERED: FLUORESCEIN SODIUM 500 MG/5 ML ONE (07:12)
[2017-06-16] MEDS ORDERED: KETAMINE 10 MG/ML, 20ML ONE (07:12)
[2017-06-16] MEDS ORDERED: BUPIVACAINE/PF 0.5% ONE (07:14)
[2017-06-16] MEDS ORDERED: EPINEPHRINE 1 MG/ML, 1ML ONE (07:15)
[2017-06-16] MEDS ORDERED: SILVER NITRATE STICK TP ONE (07:15)
[2017-06-16 07:36] LABS: HCG UR OBC PASS
[2017-06-16] MEDS ORDERED: ACETAMINOPHEN 325 MG TABLET PO PRN (09:00)
[2017-06-16] MEDS ORDERED: METOPROLOL 1 MG/ML, 5ML IV PRN (09:00)
[2017-06-16] MEDS ORDERED: HYDROcodone/APAP 7.5-325MG/15ML UDC PO PRN (09:00)
[2017-06-16] MEDS ORDERED: LABETALOL 5MG/ML, 20ML IV PRN (09:00)
[2017-06-16] MEDS ORDERED: ONDANSETRON 2MG/ML, 2ML IVPush PRN ×2 (09:00→11:00)
[2017-06-16] MEDS ORDERED: EPHEDRINE 50 MG/ML, 1ML IVPush PRN (09:00)
[2017-06-16] MEDS ORDERED: ALBUTEROL SULFATE 2.5 MG/3 ML NPPB PRN (09:00)
[2017-06-16] MEDS ORDERED: ALBUTEROL/IPRATROPIUM 2.5MG/0.5MG, 3 ML NPPB PRN ×2 (09:00→11:00)
[2017-06-16] MEDS ORDERED: PROMETHAZINE 25 MG/ML, 1ML IV PRN (09:00)
[2017-06-16] MEDS ORDERED: METOCLOPRAMIDE 5 MG/ML, 2ML IVPush PRN (11:00)
[2017-06-16] MEDS: SODIUM CHLORIDE 0.9% 1,000 ML IV SCH ×2 (11:00→16:22)
[2017-06-16] MEDS ORDERED: HYDROmorphone 2 MG/ML, 1ML IVPush PRN (11:00)
[2017-06-16] MEDS ORDERED: HYDROmorphone 1 MG/ML, 1ML ONE ×2 (11:09→11:34)
[2017-06-16] MEDS ORDERED: FENTANYL PF 100 MCG/2ML ONE (11:09)
[2017-06-16] MEDS: FENTANYL PF 100 MCG/2ML IV PRN ×2 (11:12→11:25)
[2017-06-16] MEDS: HYDROmorphone 1 MG/ML, 1ML IV PRN ×2 (11:19→11:30)
[2017-06-16] MEDS ORDERED: DIPHENHYDRAMINE 50 MG/ML, 1ML ONE (11:50)
[2017-06-16] MEDS ORDERED: DIPHENHYDRAMINE 50 MG/ML, 1ML IVPush ONE (12:00)
[2017-06-16] MEDS ORDERED: HYDROcodone/APAP 7.5-325MG/15ML UDC ONE (12:38)
[2017-06-16 13:35] VITALS: BP 144/81
[2017-06-16] MEDS ORDERED: morphine SULFATE 10 MG/ML, 1ML IVPush PRN (14:30)
[2017-06-16] MEDS ORDERED: SEVELAMER 2.4 GM POWD.PACK PO SCH (16:00)
[2017-06-16] MEDS ORDERED: NEOSTIGMINE 1 MG/ML, 10ML ONE (16:14)
[2017-06-16] MEDS ORDERED: EPHEDRINE 50 MG/ML, 1ML ONE (16:14)
[2017-06-16] MEDS ORDERED: ONDANSETRON 2MG/ML, 2ML ONE (16:14)
[2017-06-16] MEDS ORDERED: PROPOFOL 10 MG/ML, 20ML ONE (16:14)
[2017-06-16] MEDS ORDERED: METOPROLOL 1 MG/ML, 5ML ONE (16:14)
[2017-06-16] MEDS ORDERED: SUCCINYLCHOLINE 20 MG/ML, 10ML ONE (16:14)
[2017-06-16] MEDS ORDERED: ROCURONIUM 10 MG/ML ONE (16:14)
[2017-06-16] MEDS ORDERED: GLYCOPYRROLATE 0.2MG/1ML ONE (16:14)
[2017-06-16] MEDS ORDERED: CEFAZOLIN 1,000 MG ONE (16:14)
[2017-06-16] MEDS: SEVELAMER 800MG TABLET PO SCH (16:22)
[2017-06-16] MEDS ORDERED: DIPHENHYDRAMINE 50 MG/ML, 1ML IVPush PRN (17:30)
[2017-06-16] MEDS: OXYcodone/APAP 5/325MG TABLET PO PRN ×2 (17:46→23:26)
[2017-06-16 20:39] VITALS: BP 106/68
[2017-06-16] MEDS ORDERED: INSULIN DETEMIR 100 UNITS/ML, PEN SQ-INSULIN SCH (21:00)
[2017-06-16] MEDS: CHOLECALCIFEROL 1,000 UNIT TABLET PO SCH (21:28)
[2017-06-16] MEDS: FERROUS SULFATE 325 MG TABLET PO SCH (21:28)
[2017-06-17] MEDS: SODIUM CHLORIDE 0.9% 1,000 ML IV SCH (00:46)
[2017-06-17 01:19] VITALS: BP 115/73
[2017-06-17 05:57] LABS: ASPARTATE AMINO TRANSFERASE 9 U/L (15-37); BLOOD UREA NITROGEN 22 mg/dL (7-18)
[2017-06-17] MEDS: SEVELAMER 800MG TABLET PO SCH (06:24)
[2017-06-17] MEDS: OXYcodone/APAP 5/325MG TABLET PO PRN (06:24)
[2017-06-17 07:02] VITALS: BP 122/70
[2017-06-17] MEDS: FERROUS SULFATE 325 MG TABLET PO SCH (08:00)
[2017-06-17] MEDS: CHOLECALCIFEROL 1,000 UNIT TABLET PO SCH (08:00)
[2017-06-20] MEDS ORDERED: EPOETIN ALFA 2000 UNIT/ML SQ SCH (06:00)
== END 2017-06-17 10:45 | disposition home or self-care (01) ==
LOC: OUT 05:19 → ORIP 10:45 → 4NOR 13:35 → DCLOUNGE 06-17 10:25
PROVIDERS: ADMIT Obstetrics & Gynecology; ATTEND Obstetrics & Gynecology
DX: N92.1 Excessive and frequent menstruation with irregular cycle (principal); N94.6 Dysmenorrhea, unspecified; D50.0 Iron deficiency anemia secondary to blood loss (chronic); N85.2 Hypertrophy of uterus; I12.0 Hypertensive chronic kidney disease with stage 5 chronic kidney disease or end stage renal disease; E11.22 Type 2 diabetes mellitus with diabetic chronic kidney disease; N18.6 End stage renal disease; E66.9 Obesity, unspecified; D63.8 Anemia in other chronic diseases classified elsewhere; N92.0 Excessive and frequent menstruation with regular cycle; R32 Unspecified urinary incontinence; Z99.2 Dependence on renal dialysis
CPT/HCPCS: 36415; 58573; 80047; 80053; 81025; 82962; 85025; 88307; 96374; 96375; G0378; J0171; J0330; J0690; J1170; J1200; J1815; J2250; J2405; J2704; J2710; J3010; J3490; J7030; Q0177

== ENCOUNTER 2018-08-17 19:18 | Emergency (ER) | payer MEDICARE, MEDICAID ==
[~2018-08-17] VITALS: Ht 157.5 cm; Wt 106.7 kg
[~2018-08-17 19:18] MED LIST changes: -AMLO5TAB2 PO; +AMLO5TAB7 PO; +FERR325T18 PO; -FERR325T20 PO; -LOSA25TA5 PO; +LOSA25TA6 PO; +NAPR-856 PO; -NAPR500T PO; -ONDA-39 PO; +ONDA4TAB12 PO; -SEVE800T PO; +SEVE800T7 PO; -TRAM100T2 PO; +TRAM100T33 PO
[2018-08-17] MEDS ORDERED: ONDANSETRON ODT 4 MG PO ONE (19:30)
[2018-08-17] MEDS ORDERED: MECLIZINE CHEWABLE 25 MG TAB PO ONE (19:30)
[2018-08-17 19:53] LABS: BASOPHILS # (AUTO) 0.03 x10^3/uL (0-0.1); BASOPHILS % (AUTO) 0 % (0-1); EOSINOPHILS # (AUTO) 0.48 x10^3/uL (0-0.4); EOSINOPHILS % (AUTO) 5 % (1-7); LYMPHOCYTES # (AUTO) 2.25 x10^3/uL (1-3.4); LYMPHOCYTES % (AUTO) 23 % (22-44); MD NO; MEAN CORPUSCULAR HEMOGLOBIN 32.7 pg (27.0-34.8); MEAN CORPUSCULAR HGB CONC 34.4 g/dL (32.4-35.8); MEAN CORPUSCULAR VOLUME 95.1 fL (80-100); MEAN PLATELET VOLUME 9.9 fL (7.4-10.4); MONOCYTES # (AUTO) 0.86 x10^3/uL (0.2-0.8); MONOCYTES % (AUTO) 9 % (2-9); NEUTROPHILS % (AUTO) 62 % (42-75); PLATELET COUNT 274 x10^3/uL (130-400); RED BLOOD COUNT 3.52 x10^6/uL (3.82-5.3); RED CELL DISTRIBUTION WIDTH 13.1 % (9.6-15.2)
[2018-08-17 19:54] LABS: ANION GAP 14 mmol/L (5-15); CALCIUM 9.4 mg/dL (8.5-10.1); CHLORIDE 92 mmol/L (98-107); CREATININE 8.72 mg/dL (0.55-1.02)
[2018-08-17] MEDS ORDERED: ONDANSETRON ODT 4 MG ONE (20:05)
[2018-08-17] MEDS ORDERED: MECLIZINE CHEWABLE 25 MG TAB ONE (20:05)
[2018-08-17 20:25] LABS: TROPONIN I 0.121 ng/mL (0.000-0.045)
[2018-08-17] MEDS ORDERED: [UNRECOGNIZED DRUG - OTHER] PO (20:42)
[2018-08-17] MEDS ORDERED: CHOL500050 PO (20:42)
[2018-08-17] MEDS ORDERED: ENBREL SQ (20:42)
[2018-08-17 21:22] VITALS: BP 160/83
== END 2018-08-17 22:01 | disposition home or self-care (01) ==
LOC: ED 21:40
DX: R42 Dizziness and giddiness (principal); I12.0 Hypertensive chronic kidney disease with stage 5 chronic kidney disease or end stage renal disease; H91.92 Unspecified hearing loss, left ear; E10.22 Type 1 diabetes mellitus with diabetic chronic kidney disease; N18.6 End stage renal disease; F17.200 Nicotine dependence, unspecified, uncomplicated; Z88.2 Allergy status to sulfonamides; Z88.5 Allergy status to narcotic agent
CPT/HCPCS: 36415; 70450; 71045; 80048; 82040; 82962; 84484; 84703; 85025; 93005; 99285; Q0162

== ENCOUNTER 2020-03-22 09:58 | Emergency (ER) | payer MEDICARE, MEDICAID ==
[~2020-03-22] VITALS: Ht 162.6 cm; Wt 108.0 kg
[~2020-03-22 09:58] MED LIST changes: +AMLO-150 PO; -AMLO5TAB7 PO; +CARV3.122 PO; +CEFD300C37 PO; +CHOL500050 PO; +CINA30TA2 PO; +ENBREL SQ; +ETAN50CA IM; +HYDR-3653 PO; -HYDR-882 PO; +LANT1000 PO; +LIDOCAINE HCL 3% TP; +LOSA25TA25 PO; -LOSA25TA6 PO; -MECL12.52 PO; +MECL12.581 PO; +ONDA-89 PO; -ONDA4TAB12 PO; +PROG100C10 PO; -PROG100C2 PO; +[UNRECOGNIZED DRUG - OTHER] PO
[2020-03-22] MEDS ORDERED: DIAZEPAM 5 MG TABLET ONE (10:37)
--- NOTE | 2020-03-22 10:53 | NUR ---
PT BIB FAMILY FOR DECREASED HEARING IN BOTH EARS, RIGHT WORSE THAN LEFT, SINCE 7 AM WITH HX OF MENIERE'S DISEASE. PT REPORTS DIZZINESS. IV STARTED AND PT TO HAVE MRI DONE. PT'S HEARING SEEMS TO BE IMPROVING SHE IS HEARING VOICES NOW AT A LOWER DECIBEL LEVEL.
[2020-03-22 10:58] LABS: BASOPHILS # (AUTO) 0.05 x10^3/uL (0-0.1); BASOPHILS % (AUTO) 1 % (0-1); EOSINOPHILS # (AUTO) 0.65 x10^3/uL (0-0.4); EOSINOPHILS % (AUTO) 7 % (1-7); LYMPHOCYTES # (AUTO) 1.44 x10^3/uL (1-3.4); LYMPHOCYTES % (AUTO) 15 % (22-44); MD NO; MEAN CORPUSCULAR HEMOGLOBIN 30.8 pg (27.0-34.8); MEAN CORPUSCULAR HGB CONC 33.1 g/dL (32.4-35.8); MEAN CORPUSCULAR VOLUME 92.8 fL (80-100); MEAN PLATELET VOLUME 7.9 fL (7.4-10.4); MONOCYTES # (AUTO) 0.73 x10^3/uL (0.2-0.8); MONOCYTES % (AUTO) 8 % (2-9); NEUTROPHILS # (AUTO) 6.66 x10^3/uL (1.8-6.8); NEUTROPHILS % (AUTO) 70 % (42-75); PLATELET COUNT 269 x10^3/uL (130-400); RED BLOOD COUNT 3.49 x10^6/uL (3.82-5.3); RED CELL DISTRIBUTION WIDTH 16.1 % (9.6-15.2)
[2020-03-22] MEDS ORDERED: SODIUM CHLORIDE FLUSH 10ML SYR IVF ONE (11:00)
[2020-03-22] MEDS ORDERED: DIAZEPAM 5 MG TABLET PO ONE (11:00)
[2020-03-22 11:06] LABS: ANION GAP 8 mmol/L (5-15); CALCIUM 10.2 mg/dL (8.5-10.1); CHLORIDE 99 mmol/L (98-107); CREATININE 6.13 mg/dL (0.55-1.02)
--- NOTE | 2020-03-22 11:42 | NUR ---
PT IN MRI.
--- NOTE | 2020-03-22 11:54 | NUR ---
RECEIVED REPORT FROM ELOINA JEAN. ASSUMING CARE AT THIS TIME.
[2020-03-22] MEDS ORDERED: GADOTERATE 10 MMOL/20 ML SYR ONE (12:46)
[2020-03-22 13:10] VITALS: BP 162/82
--- NOTE | 2020-03-22 13:11 | NUR ---
PT BACK FROM MRI. PT RECONNECTED TO MONITORING. NADN. HEARING BETTER IN LEFT EAR.
--- NOTE | 2020-03-22 13:20 | NUR ---
ALL RESULTS ARE BACK AT THIS TIME. CHART UP FOR RECHECK.
--- NOTE | 2020-03-22 13:33 | NUR ---
MD AT BEDSIDE TO UPDATE PT ON POC.
== END 2020-03-22 14:34 | disposition home or self-care (01) ==
LOC: ED 10:33
DX: H90.41 Sensorineural hearing loss, unilateral, right ear, with unrestricted hearing on the contralateral side (principal); R42 Dizziness and giddiness; I11.0 Hypertensive heart disease with heart failure; I50.9 Heart failure, unspecified; E10.8 Type 1 diabetes mellitus with unspecified complications
CPT/HCPCS: 36415; 70553; 80048; 82040; 85025; 99285; A9575